=== PATIENT | male | born 1980 | race Caucasian/White ===

== ENCOUNTER 2022-04-12 11:38 | Inpatient (IN) | payer OTHER ==
[2022-04-12 12:06] VITALS: BMI 31.6
[2022-04-12] MEDS ORDERED: MAG HYDROX/AL HYDROX/SIMETH 30 ML UNIT-DOSE CUP PO PRN (13:20)
[2022-04-12] MEDS ORDERED: NALOXONE HCL (KLOXXADO) 8 MG SPRAY NS PRN (13:20)
[2022-04-12] MEDS ORDERED: BENZOCAINE/MENTHOL (CHLORASEPTIC ) LOZENGE MM PRN (13:20)
[2022-04-12] MEDS ORDERED: ONDANSETRON *ODT* 4 MG TABLET SL PRN (13:20)
[2022-04-12] MEDS ORDERED: MAGNESIUM CITRATE 300 ML BOTTLE PO PRN (13:20)
[2022-04-12] MEDS ORDERED: DICYCLOMINE HCL 10 MG CAPSULE PO PRN (13:20)
[2022-04-12] MEDS ORDERED: LOPERAMIDE HCL 2 MG CAPSULE PO PRN (13:20)
[2022-04-12] MEDS ORDERED: BISMUTH SUBSALICYLATE 524 MG/30 ML PO PRN (13:20)
[2022-04-12] MEDS ORDERED: hydrOXYzine PAMOATE 25 MG CAPSULE (FP) PO ONE (13:43)
[2022-04-12] MEDS: hydrOXYzine PAMOATE 25 MG CAPSULE (FP) PO PRN ×2 (13:54→17:10)
[2022-04-12] MEDS ORDERED: methaDONE HCL 10 MG TABLET (FOR DETOX USE ONLY) PO ONE (14:00)
[2022-04-12] MEDS: METHOCARBAMOL 500 MG TABLET PO PRN (14:19)
[2022-04-12 16:04] LABS: HEMATOCRIT 44.3 % (35.4-49); HEMOGLOBIN 15.2 GM/dL (11.7-16.9); MCH 29.6 pg (25.7-33.7); MCHC 34.3 g/dl (32.0-35.9); MEAN CELL VOLUME 86.2 fl (80-96); MEAN PLT VOLUME 8.2 fl (7.5-11.1); PLATELET COUNT 357 10^3/uL (134-434); RBC 5.14 M/mm3 (4.00-5.60); RDW 13.8 % (11.9-15.9); WHITE BLOOD COUNT 8.5 K/mm3 (4.0-10.0)
[2022-04-12 16:17] LABS: ALBUMIN 4.2 g/dl (3.4-5.0); BLOOD UREA NITROGEN 15.6 mg/dL (7-18); CALCIUM 9.6 mg/dL (8.5-10.1)
[2022-04-12 16:21] LABS: CREATININE 0.8 mg/dL (0.55-1.3)
[2022-04-12 16:22] LABS: BILIRUBIN,TOTAL 0.4 mg/dL (0.2-1); TOT PROT 8.5 g/dl (6.4-8.2)
[2022-04-12] MEDS: cloNIDine HCL 0.1 MG TABLET PO PRN ×2 (17:10→23:47)
[2022-04-12] MEDS: IBUPROFEN 600 MG TABLET (FP) PO PRN (17:10)
[2022-04-12] MEDS: diazePAM 5 MG TABLET PO PRN (21:13)
[2022-04-12] MEDS: MELATONIN 5 MG TABLETS PO SCH (23:47)
[2022-04-12] MEDS: THIAMINE HCL 100 MG TABLET (FP) PO SCH (23:47)
[2022-04-13] MEDS: METHOCARBAMOL 500 MG TABLET PO PRN ×2 (01:10→13:32)
[2022-04-13] MEDS: ACETAMINOPHEN 325 MG TABLET (FP) PO PRN ×2 (01:11→11:53)
[2022-04-13] MEDS: diazePAM 5 MG TABLET PO PRN ×2 (06:08→11:52)
[2022-04-13] MEDS: PRENATAL VITAMINS W/ FOLIC ACID TABLET (FP) PO SCH (10:13)
[2022-04-13] MEDS ORDERED: VENLAFAXINE HCL 75 MG E.R. CAPSULES PO ONE (10:15)
[2022-04-13] MEDS: VENLAFAXINE HCL 75 MG E.R. CAPSULES PO SCH (11:13)
[2022-04-13] MEDS ORDERED: SUVOREXANT 10 MG TABLET PO PRN (22:00)
[2022-04-13] MEDS: PRAZOSIN HCL 1 MG CAPSULE PO SCH (22:45)
[2022-04-13] MEDS: THIAMINE HCL 100 MG TABLET (FP) PO SCH (22:46)
[2022-04-13] MEDS: MELATONIN 5 MG TABLETS PO SCH (22:46)
[2022-04-13] MEDS: cloNIDine HCL 0.1 MG TABLET PO PRN (22:47)
[2022-04-14] MEDS: VENLAFAXINE HCL 75 MG E.R. CAPSULES PO SCH (07:45)
[2022-04-14] MEDS ORDERED: methaDONE HCL 10 MG TABLET (FOR DETOX USE ONLY) PO ONE (10:00)
[2022-04-14] MEDS: PRENATAL VITAMINS W/ FOLIC ACID TABLET (FP) PO SCH (10:37)
[2022-04-14] MEDS: MAGNESIUM HYDROX 2400MG/30ML ORAL SUSPENSION 30 ML CUP PO PRN (10:48)
[2022-04-14 12:46] LABS: BILIRUBIN,DIRECT 0.1 mg/dL (0.0-0.2)
[2022-04-14 12:49] LABS: BILIRUBIN,TOTAL 0.2 mg/dL (0.2-1)
[2022-04-14] MEDS: METHOCARBAMOL 500 MG TABLET PO PRN (17:04)
[2022-04-14] MEDS: IBUPROFEN 600 MG TABLET (FP) PO PRN (17:04)
[2022-04-14] MEDS: NICOTINE 10 MG CARTRIDGE (INHALER) IH PRN (20:34)
[2022-04-14] MEDS: PRAZOSIN HCL 1 MG CAPSULE PO SCH (22:34)
[2022-04-14] MEDS: MELATONIN 5 MG TABLETS PO SCH (22:35)
[2022-04-14] MEDS: THIAMINE HCL 100 MG TABLET (FP) PO SCH (22:35)
[2022-04-15] MEDS: VENLAFAXINE HCL 75 MG E.R. CAPSULES PO SCH (07:50)
[2022-04-15] MEDS: IBUPROFEN 600 MG TABLET (FP) PO PRN ×2 (08:59→17:45)
[2022-04-15] MEDS: PRENATAL VITAMINS W/ FOLIC ACID TABLET (FP) PO SCH (11:05)
[2022-04-15] MEDS: hydrOXYzine PAMOATE 25 MG CAPSULE (FP) PO PRN (11:05)
[2022-04-15] MEDS: METHOCARBAMOL 500 MG TABLET PO PRN ×2 (11:05→22:30)
[2022-04-15] MEDS: diazePAM 5 MG TABLET PO PRN (11:06)
[2022-04-15] MEDS: ACETAMINOPHEN 325 MG TABLET (FP) PO PRN (11:07)
[2022-04-15] MEDS: NICOTINE 10 MG CARTRIDGE (INHALER) IH PRN ×2 (11:17→23:22)
[2022-04-15] MEDS: PRAZOSIN HCL 1 MG CAPSULE PO SCH (22:29)
[2022-04-15] MEDS: MELATONIN 5 MG TABLETS PO SCH (22:29)
[2022-04-15] MEDS: THIAMINE HCL 100 MG TABLET (FP) PO SCH (22:29)
[2022-04-16] MEDS: VENLAFAXINE HCL 75 MG E.R. CAPSULES PO SCH (07:44)
[2022-04-16] MEDS ORDERED: methaDONE HCL 10 MG TABLET (FOR DETOX USE ONLY) PO ONE (10:00)
[2022-04-16] MEDS: PRENATAL VITAMINS W/ FOLIC ACID TABLET (FP) PO SCH (10:42)
[2022-04-16] MEDS: IBUPROFEN 600 MG TABLET (FP) PO PRN (14:27)
[2022-04-16] MEDS: METHOCARBAMOL 500 MG TABLET PO PRN (14:28)
[2022-04-16] MEDS: NICOTINE 10 MG CARTRIDGE (INHALER) IH PRN (19:20)
[2022-04-16] MEDS: IBUPROFEN 400 MG TABLET (FP) PO PRN (21:10)
[2022-04-16] MEDS: THIAMINE HCL 100 MG TABLET (FP) PO SCH (21:32)
[2022-04-16] MEDS: PRAZOSIN HCL 1 MG CAPSULE PO SCH (21:32)
[2022-04-16] MEDS: MELATONIN 5 MG TABLETS PO SCH (21:32)
[2022-04-17] MEDS: VENLAFAXINE HCL 75 MG E.R. CAPSULES PO SCH (07:32)
[2022-04-17] MEDS: PRENATAL VITAMINS W/ FOLIC ACID TABLET (FP) PO SCH (10:21)
[2022-04-17] MEDS: METHOCARBAMOL 500 MG TABLET PO PRN (11:10)
[2022-04-17] MEDS: IBUPROFEN 600 MG TABLET (FP) PO PRN (11:10)
[2022-04-17] MEDS: IBUPROFEN 400 MG TABLET (FP) PO PRN (15:35)
[2022-04-17] MEDS: NICOTINE 10 MG CARTRIDGE (INHALER) IH PRN (16:36)
[2022-04-17] MEDS: THIAMINE HCL 100 MG TABLET (FP) PO SCH (23:59)
[2022-04-17] MEDS: MELATONIN 5 MG TABLETS PO SCH (23:59)
[2022-04-17] MEDS: PRAZOSIN HCL 1 MG CAPSULE PO SCH (23:59)
[2022-04-18] MEDS: METHOCARBAMOL 500 MG TABLET PO PRN ×2 (02:39→10:18)
[2022-04-18] MEDS: hydrOXYzine PAMOATE 25 MG CAPSULE (FP) PO PRN ×2 (02:39→19:46)
[2022-04-18] MEDS: IBUPROFEN 600 MG TABLET (FP) PO PRN ×2 (02:39→19:42)
[2022-04-18] MEDS: NICOTINE 10 MG CARTRIDGE (INHALER) IH PRN ×2 (02:47→19:40)
[2022-04-18] MEDS: VENLAFAXINE HCL 75 MG E.R. CAPSULES PO SCH (07:07)
[2022-04-18] MEDS: PRENATAL VITAMINS W/ FOLIC ACID TABLET (FP) PO SCH (10:16)
[2022-04-18] MEDS: MELATONIN 5 MG TABLETS PO SCH (21:41)
[2022-04-18] MEDS: THIAMINE HCL 100 MG TABLET (FP) PO SCH (21:41)
[2022-04-18] MEDS: PRAZOSIN HCL 1 MG CAPSULE PO SCH (21:42)
[2022-04-18] MEDS: TOLNAFTATE 1% CREAM 15 GM TUBE TP SCH (21:43)
[2022-04-19] MEDS: VENLAFAXINE HCL 75 MG E.R. CAPSULES PO SCH (07:05)
[2022-04-19] MEDS: PRENATAL VITAMINS W/ FOLIC ACID TABLET (FP) PO SCH (09:16)
[2022-04-19] MEDS: TOLNAFTATE 1% CREAM 15 GM TUBE TP SCH ×2 (09:17→21:19)
[2022-04-19] MEDS: hydrOXYzine PAMOATE 25 MG CAPSULE (FP) PO PRN (09:17)
[2022-04-19] MEDS: IBUPROFEN 600 MG TABLET (FP) PO PRN ×2 (09:17→18:39)
[2022-04-19] MEDS ORDERED: CYCLOBENZAPRINE HCL 10 MG TABLET (FP) PO PRN (11:45)
[2022-04-19] MEDS: METHOCARBAMOL 500 MG TABLET PO SCH ×2 (14:07→21:18)
[2022-04-19] MEDS: MELATONIN 5 MG TABLETS PO SCH (21:18)
[2022-04-19] MEDS: THIAMINE HCL 100 MG TABLET (FP) PO SCH (21:18)
[2022-04-19] MEDS: PRAZOSIN HCL 1 MG CAPSULE PO SCH (21:19)
[2022-04-20] MEDS: METHOCARBAMOL 500 MG TABLET PO SCH ×3 (06:01→21:12)
[2022-04-20] MEDS: IBUPROFEN 600 MG TABLET (FP) PO PRN ×2 (06:02→14:21)
[2022-04-20] MEDS: PRENATAL VITAMINS W/ FOLIC ACID TABLET (FP) PO SCH (09:50)
[2022-04-20] MEDS: TOLNAFTATE 1% CREAM 15 GM TUBE TP SCH ×2 (09:50→21:14)
[2022-04-20] MEDS: VENLAFAXINE HCL 75 MG E.R. CAPSULES PO SCH (09:50)
[2022-04-20] MEDS: NICOTINE 10 MG CARTRIDGE (INHALER) IH PRN ×2 (17:18→21:14)
[2022-04-20] MEDS: SENNOSIDES 8.6MG TABLET (FP) PO SCH (21:12)
[2022-04-20] MEDS: PRAZOSIN HCL 1 MG CAPSULE PO SCH (21:13)
[2022-04-20] MEDS: MELATONIN 5 MG TABLETS PO SCH (21:14)
[2022-04-20] MEDS: THIAMINE HCL 100 MG TABLET (FP) PO SCH (21:14)
[2022-04-21] MEDS: METHOCARBAMOL 500 MG TABLET PO SCH ×3 (06:38→21:56)
[2022-04-21] MEDS: MAGNESIUM HYDROX 2400MG/30ML ORAL SUSPENSION 30 ML CUP PO PRN (06:40)
[2022-04-21] MEDS: VENLAFAXINE HCL 75 MG E.R. CAPSULES PO SCH (07:02)
[2022-04-21] MEDS: PRENATAL VITAMINS W/ FOLIC ACID TABLET (FP) PO SCH (10:12)
[2022-04-21] MEDS: TOLNAFTATE 1% CREAM 15 GM TUBE TP SCH ×2 (10:13→21:57)
[2022-04-21] MEDS: SENNOSIDES 8.6MG TABLET (FP) PO SCH ×2 (10:14→21:56)
[2022-04-21] MEDS: IBUPROFEN 600 MG TABLET (FP) PO PRN (10:15)
[2022-04-21] MEDS: PRAZOSIN HCL 1 MG CAPSULE PO SCH (21:56)
[2022-04-21] MEDS: MELATONIN 5 MG TABLETS PO SCH (21:56)
[2022-04-21] MEDS: THIAMINE HCL 100 MG TABLET (FP) PO SCH (21:57)
[2022-04-21] MEDS: NICOTINE 10 MG CARTRIDGE (INHALER) IH PRN (22:00)
[2022-04-22] MEDS: METHOCARBAMOL 500 MG TABLET PO SCH ×3 (06:13→21:07)
[2022-04-22] MEDS: NICOTINE 10 MG CARTRIDGE (INHALER) IH PRN ×3 (06:13→21:22)
[2022-04-22] MEDS: VENLAFAXINE HCL 75 MG E.R. CAPSULES PO SCH (07:07)
[2022-04-22] MEDS: SENNOSIDES 8.6MG TABLET (FP) PO SCH ×2 (10:05→21:06)
[2022-04-22] MEDS: PRENATAL VITAMINS W/ FOLIC ACID TABLET (FP) PO SCH (10:05)
[2022-04-22] MEDS: IBUPROFEN 400 MG TABLET (FP) PO PRN (10:06)
[2022-04-22] MEDS: TOLNAFTATE 1% CREAM 15 GM TUBE TP SCH ×2 (10:08→21:08)
[2022-04-22] MEDS: ACETAMINOPHEN 325 MG TABLET (FP) PO PRN (14:26)
[2022-04-22] MEDS: LIDOCAINE 5% TOPICAL PATCH TP SCH (15:11)
[2022-04-22] MEDS: PRAZOSIN HCL 1 MG CAPSULE PO SCH (21:06)
[2022-04-22] MEDS: THIAMINE HCL 100 MG TABLET (FP) PO SCH (21:06)
[2022-04-22] MEDS: MELATONIN 5 MG TABLETS PO SCH (21:06)
[2022-04-22] MEDS: IBUPROFEN 600 MG TABLET (FP) PO PRN (21:07)
[2022-04-22] MEDS: LIDOCAINE PATCH REMOVAL MC SCH (21:08)
[2022-04-23] MEDS: IBUPROFEN 400 MG TABLET (FP) PO PRN (05:49)
[2022-04-23] MEDS: hydrOXYzine PAMOATE 25 MG CAPSULE (FP) PO PRN (05:50)
[2022-04-23] MEDS: METHOCARBAMOL 500 MG TABLET PO SCH ×3 (05:50→21:10)
[2022-04-23] MEDS: VENLAFAXINE HCL 75 MG E.R. CAPSULES PO SCH (07:01)
[2022-04-23] MEDS: SENNOSIDES 8.6MG TABLET (FP) PO SCH ×2 (09:19→21:10)
[2022-04-23] MEDS: PRENATAL VITAMINS W/ FOLIC ACID TABLET (FP) PO SCH (09:19)
[2022-04-23] MEDS: ACETAMINOPHEN 325 MG TABLET (FP) PO PRN (09:20)
[2022-04-23] MEDS: IBUPROFEN 600 MG TABLET (FP) PO PRN ×2 (09:21→14:32)
[2022-04-23] MEDS: LIDOCAINE 5% TOPICAL PATCH TP SCH (09:24)
[2022-04-23] MEDS: TOLNAFTATE 1% CREAM 15 GM TUBE TP SCH ×2 (09:24→21:11)
[2022-04-23] MEDS: NICOTINE 10 MG CARTRIDGE (INHALER) IH PRN ×2 (14:30→21:39)
[2022-04-23] MEDS: MELATONIN 5 MG TABLETS PO SCH (21:10)
[2022-04-23] MEDS: THIAMINE HCL 100 MG TABLET (FP) PO SCH (21:10)
[2022-04-23] MEDS: PRAZOSIN HCL 1 MG CAPSULE PO SCH (21:10)
[2022-04-23] MEDS: LIDOCAINE PATCH REMOVAL MC SCH (21:11)
[2022-04-24] MEDS: METHOCARBAMOL 500 MG TABLET PO SCH ×3 (06:28→21:15)
[2022-04-24] MEDS: VENLAFAXINE HCL 75 MG E.R. CAPSULES PO SCH (07:07)
[2022-04-24] MEDS: LIDOCAINE 5% TOPICAL PATCH TP SCH (10:05)
[2022-04-24] MEDS: PRENATAL VITAMINS W/ FOLIC ACID TABLET (FP) PO SCH (10:05)
[2022-04-24] MEDS: TOLNAFTATE 1% CREAM 15 GM TUBE TP SCH ×2 (10:07→21:16)
[2022-04-24] MEDS: NICOTINE 10 MG CARTRIDGE (INHALER) IH PRN ×2 (10:07→14:23)
[2022-04-24] MEDS: IBUPROFEN 600 MG TABLET (FP) PO PRN ×2 (10:07→16:49)
[2022-04-24] MEDS: SENNOSIDES 8.6MG TABLET (FP) PO SCH ×2 (12:34→21:15)
[2022-04-24] MEDS: PRAZOSIN HCL 1 MG CAPSULE PO SCH (21:15)
[2022-04-24] MEDS: MELATONIN 5 MG TABLETS PO SCH (21:15)
[2022-04-24] MEDS: LIDOCAINE PATCH REMOVAL MC SCH (21:16)
[2022-04-24] MEDS: THIAMINE HCL 100 MG TABLET (FP) PO SCH (21:16)
[2022-04-25] MEDS: METHOCARBAMOL 500 MG TABLET PO SCH ×3 (05:52→21:06)
[2022-04-25] MEDS: NICOTINE 10 MG CARTRIDGE (INHALER) IH PRN ×3 (05:52→18:10)
[2022-04-25] MEDS: hydrOXYzine PAMOATE 25 MG CAPSULE (FP) PO PRN (05:53)
[2022-04-25] MEDS: VENLAFAXINE HCL 75 MG E.R. CAPSULES PO SCH (07:01)
[2022-04-25] MEDS: PRENATAL VITAMINS W/ FOLIC ACID TABLET (FP) PO SCH (10:33)
[2022-04-25] MEDS: SENNOSIDES 8.6MG TABLET (FP) PO SCH ×2 (10:34→21:06)
[2022-04-25] MEDS: LIDOCAINE 5% TOPICAL PATCH TP SCH (10:34)
[2022-04-25] MEDS: IBUPROFEN 600 MG TABLET (FP) PO PRN (10:35)
[2022-04-25] MEDS: TOLNAFTATE 1% CREAM 15 GM TUBE TP SCH ×2 (10:35→21:07)
[2022-04-25] MEDS: ACETAMINOPHEN 325 MG TABLET (FP) PO PRN (13:29)
[2022-04-25] MEDS ORDERED: IBUPROFEN 400 MG TABLET (FP) PO PRN (16:00)
[2022-04-25] MEDS ORDERED: ACETAMINOPHEN 325 MG TABLET (FP) PO PRN (16:01)
[2022-04-25] MEDS: IBUPROFEN 400 MG TABLET (FP) PO PRN (18:10)
[2022-04-25] MEDS: THIAMINE HCL 100 MG TABLET (FP) PO SCH (21:06)
[2022-04-25] MEDS: MELATONIN 5 MG TABLETS PO SCH (21:06)
[2022-04-25] MEDS: PRAZOSIN HCL 1 MG CAPSULE PO SCH (21:06)
[2022-04-25] MEDS: LIDOCAINE PATCH REMOVAL MC SCH (21:07)
[2022-04-26] MEDS: METHOCARBAMOL 500 MG TABLET PO SCH (06:13)
[2022-04-26] MEDS: NICOTINE 10 MG CARTRIDGE (INHALER) IH PRN (06:13)
[2022-04-26 06:55] VITALS: BP 125/76; PULSE 94; RESP 18; TEMP 97.5
[2022-04-26] MEDS: VENLAFAXINE HCL 75 MG E.R. CAPSULES PO SCH (07:52)
== END 2022-04-26 08:47 | disposition home or self-care (01) | DRG 895 ==
LOC: YASAS 11:38 → Y3N 13:03 → Y3W 04-18 10:50
PROVIDERS: ADMIT Allergy & Immunology; ATTEND Psychiatry & Neurology Pain Medicine
PROC: HZ2ZZZZ Detoxification Services for Substance Abuse Treatment (ICD-10-PCS; 2022-04-12)
PROC: HZ42ZZZ Group Counseling for Substance Abuse Treatment, Cognitive-Behavioral (ICD-10-PCS; principal; 2022-04-18)
DX: F11.20 Opioid dependence, uncomplicated (principal); F12.10 Cannabis abuse, uncomplicated; F31.9 Bipolar disorder, unspecified; F41.9 Anxiety disorder, unspecified; F43.10 Post-traumatic stress disorder, unspecified; R60.0 Localized edema; M25.512 Pain in left shoulder; M54.2 Cervicalgia; S06.0X0A Concussion without loss of consciousness, initial encounter; V86.61XA Passenger of ambulance or fire engine injured in nontraffic accident, initial encounter; Y92.410 Unspecified street and highway as the place of occurrence of the external cause; Z87.891 Personal history of nicotine dependence
CPT/HCPCS: 36415; 80053; 80076; 85027; 86780; 87811; C9803-CS; U0003; U0005

== ENCOUNTER 2022-04-17 19:02 | Emergency (ER) | payer OTHER ==
[2022-04-17 19:11] VITALS: BP 106/61; PULSE 85; RESP 19; TEMP 97.3; BMI 31.6
[2022-04-17 23:53] LABS: BASO % 0.6 % (0-2.0); EOS % 4.1 % (0-4.5); HEMATOCRIT 35.5 % (35.4-49); HEMOGLOBIN 12.6 GM/dL (11.7-16.9); LYMPH % 39.4 % (8-40); MCH 31.1 pg (25.7-33.7); MCHC 35.4 g/dl (32.0-35.9); MEAN CELL VOLUME 87.7 fl (80-96); MEAN PLT VOLUME 7.9 fl (7.5-11.1); MONO % 8.1 % (3.8-10.2); NEUT % 47.8 % (42.8-82.8); PLATELET COUNT 322 10^3/uL (134-434); RBC 4.05 M/mm3 (4.00-5.60); RDW 13.5 % (11.9-15.9); WHITE BLOOD COUNT 5.2 K/mm3 (4.0-10.0)
[2022-04-18 00:16] LABS: BLOOD UREA NITROGEN 16.7 mg/dL (7-18); CALCIUM 8.2 mg/dL (8.5-10.1)
[2022-04-18 00:19] LABS: CREATININE 0.7 mg/dL (0.55-1.3)
[2022-04-18 00:21] LABS: BILIRUBIN,TOTAL 0.2 mg/dL (0.2-1)
[2022-04-18 00:24] LABS: N-TERMINAL BNP 34.8 pg/ml (5-125)
[2022-04-18 00:31] LABS: TOT PROT 6.9 g/dl (6.4-8.2)
[2022-04-18] MEDS ORDERED: ACETAMINOPHEN 325 MG TABLET (FP) PO ONE (01:00)
[2022-04-18] MEDS ORDERED: ACETAMINOPHEN 325 MG TABLET (FP) ONE ×2 (01:07→01:10)
[2022-04-18 01:48] LABS: URINE APPEARANCE CLEAR; URINE BILIRUBIN NEGATIVE (NEGATIVE); URINE COLOR YELLOW; URINE GLUCOSE (UA) NEGATIVE (NEGATIVE); URINE KETONE NEGATIVE (NEGATIVE); URINE LEUK ESTERASE NEGATIVE (NEGATIVE); URINE NITRITE NEGATIVE (NEGATIVE); URINE PROTEIN NEGATIVE (NEGATIVE); URINE UROBILINOGEN 0.2 mg/dL (0.2-1.0)
== END 2022-04-18 02:15 | disposition home or self-care (01) ==
LOC: JER 19:02
DX: R60.0 Localized edema (principal)
CPT/HCPCS: 36415; 71046-TC-FY; 80053; 81003; 83735; 83880; 84484; 85025; 93005; 93010; 93970-TC; 99285-25

== ENCOUNTER 2022-04-21 13:17 | Emergency (ER) | payer OTHER ==
[2022-04-21 13:53] VITALS: RESP 18; BMI 31.6
[2022-04-21] MEDS ORDERED: ACETAMINOPHEN 325 MG TABLET (FP) PO ONE (14:47)
[2022-04-21] MEDS ORDERED: ACETAMINOPHEN 325 MG TABLET (FP) ONE (15:26)
[2022-04-21] MEDS ORDERED: LIDOCAINE 5% TOPICAL PATCH TP ONE (17:21)
[2022-04-21] MEDS ORDERED: CYCLOBENZAPRINE HCL 5 MG TABLET PO ONE (17:21)
[2022-04-21] MEDS ORDERED: LIDOCAINE 5% TOPICAL PATCH ONE (17:36)
[2022-04-21] MEDS ORDERED: CYCLOBENZAPRINE HCL 10 MG TABLET (FP) ONE (17:36)
[2022-04-21] MEDS ORDERED: KETOROLAC TROMETHAMINE 15 MG/ML VIAL IM ONE (18:37)
[2022-04-21] MEDS ORDERED: KETOROLAC TROMETHAMINE 15 MG/ML VIAL ONE (18:40)
[2022-04-21 20:04] VITALS: BP 142/94; PULSE 96; TEMP 98.6
== END 2022-04-21 20:12 | disposition home or self-care (01) ==
LOC: JER 13:17
DX: S06.0X0A Concussion without loss of consciousness, initial encounter (principal)
CPT/HCPCS: 70450-TC; 72125-TC; 73030-TC-LT-FY; 76512; 99285-25